=== PATIENT | female | born 1980 | race Caucasian/White ===

== ENCOUNTER 2018-08-08 08:01 | Emergency (ER) | payer OTHER ==
[2018-08-08 08:18] VITALS: BP 113/78
--- NOTE | 2018-08-08 08:43 | ED Physician Documentation ---
PD HPI LOWER EXT INJURY - Stated complaint Stated Complaint: RT FT PX - Chief complaint Chief Complaint: Ext Problem - History obtained from History obtained from: Patient - History of Present Illness PD HPI LOW EXT INJURY LOCATION: Right, Foot Type of injury: Other (A big man at work stepped on her right foot accidentally last July 28.) Where injury occurred: Other (At an office alliance party) Timing - onset: How many days ago (11) Timing - details: Abrupt onset, Intermittant Pain level max: 8 Pain level now: 5 Improved by: Rest Worsened by: Moving Associated symptoms: Swelling. No: Weakness, Numbness, Tingling, Discolored Contributing factors: No: Anticoagulated, Work related Similar symptoms before: Has not had sx before - Additional information Additional information: 38-year-old female with history of bilateral tubal ligation here complaining of right foot pain since July 28, 2018 at an office alliance party when a large man accidentally stepped on her right foot. States was taking ibuprofen which decreased the pain and the swelling had decreased. However it still hurts when she walks so she is here for x-ray. Review of Systems Ten Systems: 10 systems reviewed and negative Constitutional: denies: Myalgias Skin: denies: Rash, Lesions, Abrasion (s), Laceration (s) Musculoskeletal: reports: Extremity pain, Extremity swelling, Pain with weight bearing. denies: Back pain, Joint pain, Joint swelling Neurologic: denies: Generalized weakness, Focal weakness, Numbness PD PAST MEDICAL HISTORY - Present Medications Home Medications: Ambulatory Orders Medication Instructions Recorded Confirmed buPROPion [Wellbutrin Xl] 08/08/18 - Allergies Allergies/Adverse Reactions: Allergies Allergy/AdvReac Type Severity Reaction Status Date / Time Penicillins Allergy Unknown Verified 08/08/18 08:16 PD ED PE NORMAL - Vitals Vital signs reviewed: Yes - General General: Alert and oriented X 3, No acute distress, Well developed/nourished - HEENT HEENT: EOMI, Moist mucous membranes - Neck Neck: Supple, no meningeal sign - Cardiac Cardiac: RRR, Strong equal pulses - Respiratory Respiratory: No respiratory distress - Back Back: No CVA TTP, No spinal TTP - Derm Derm: Normal color, Warm and dry, No rash - Extremities Extremities: No deformity, No tenderness to palpate, Normal ROM s pain, No edema, No calf tenderness / cord, Other (Right foot: Dorsal aspect approximately with mild swelling. Full range of motion. Neurovascularly intact.) - Neuro Neuro: Alert and oriented X 3 - Psych Psych: Normal mood, Normal affect Results - Vitals Vitals: Vital Signs - 24 hr 08/08/18 08:16 Temperature 36.3 C L Heart Rate 73 Respiratory 16 Rate Blood Pressure 113/78 O2 Saturation 98 Oxygen O2 Source Room air PD MEDICAL DECISION MAKING - ED course Complexity details: reviewed results, re-evaluated patient, considered differential (Foot contusion, foot sprain, fracture, dislocation), d/w patient ED course: 0944Patient sitting the chair in no acute distress. Inform of x-ray results. Patient states does not need any work note for pain medication. Will discharge patient. Departure - Departure Disposition: 01 Home, Self Care Clinical Impression: Pain of lower extremity Condition: Good Instructions: ED Contusion Lower Ext Comments: Continue [id number] Tylenol or Motrin for pain. Elevate right foot to decrease the swelling. Follow-up with your primary doctor in 1-2 weeks. If worse return to the emergency room.
--- NOTE | 2018-08-08 09:35 | XRAY Report ---
Reason: contusion pain Procedure Date: 08/08/2018 Accession Number: [id number] / [id number] Procedure: XR - Foot 3 View RT CPT Code: FULL RESULT: EXAM: RIGHT FOOT RADIOGRAPHY EXAM DATE: 08/08/2018 08:50 AM. CLINICAL HISTORY: Contusion, pain. Patient was stepped on while dancing. Right dorsal foot pain. COMPARISON: None. TECHNIQUE: 3 nonweightbearing views. FINDINGS: Bones: No fractures or bone lesions. There is a prominent median eminence of the navicular bone, a normal variant. Joints: Normal. No subluxations. Soft Tissues: Normal. No focal soft tissue swelling. IMPRESSION: Normal foot radiography. No acute osseous abnormality. [facility]
== END 2018-08-08 10:10 | disposition home or self-care (01) ==
LOC: ED 08:01
DX: M79.671 Pain in right foot (principal); M79.89 Other specified soft tissue disorders; W50.0XXA Accidental hit or strike by another person, initial encounter; Y92.89 Other specified places as the place of occurrence of the external cause
CPT/HCPCS: 99282